=== PATIENT | female | born 1955 | race Caucasian/White ===

== ENCOUNTER 2018-08-05 00:49 | Emergency (ER) | payer MEDICARE, OTHER ==
[2018-08-05 01:33] LABS: Bilirubin Negative (Negative); Blood, Urine Large (Negative); Clarity CLEAR (Clear); Glucose, Urine (Dipstick) Negative (Negative); Leukocyte Negative (Negative); Nitrite Negative (Negative); Protein, Urine (Dipstick) Negative (Neg-Trace); Specific Gravity, Urine 1.011 (1.002-1.036); Urobilinogen 0.2 mg/dL (0.2-1.0)
[2018-08-05 01:33] LABS: #Basophils 0.1 thou/uL (0.0-0.2); #Eosinphils 0.1 thou/uL (0.0-0.7); #Lymphocytes 2.8 thou/uL (1.20-3.40); #Monocytes 0.7 thou/uL (0.11-0.59); #Neutrophils 3.3 thou/uL (1.40-6.50); %Basophils 1.1 % (0.0-1.0); %Eosinophils 1.5 % (0.0-10.0); %Lymphocytes 40.1 % (21.0-51.0); %Neutrophils 47.3 % (42.0-75.0); Hemoglobin 13.9 g/dL (12.0-16.0); Mean Corpuscular HGB CONC 33.4 g/dL (32.0-36.0); Mean Corpuscular Hemoglobin 31.8 pg (27.0-31.0); Mean Corpuscular Volume 95.2 fL (78.0-98.0); Mean Platelet Volume 7.8 fL (7.4-10.4); Platelet Count 251 thou/uL (130-400); RBC Distribution Width 11.8 % (11.5-14.5); Red Blood Cell (RBC) Count 4.38 mill/uL (4.20-5.40)
[2018-08-05 01:36] LABS: Bacteria/HPF None Seen HPF (None Seen); Hyaline Casts/LPF 0-3 HYALINE CAST LPF (0-3 Hyaline); Pathc Cast-AUWi Flag 0.14 (0-2.49); RBC/HPF GREATER THAN 50-TNTC HPF (0-3); WBC/HPF 0-3 HPF (0-3)
[2018-08-05 01:43] LABS: Renal Epithelial None Seen HPF (0-3)
[2018-08-05 01:51] LABS: ALT (SGPT) 22 U/L (8-55); AST (SGOT) 18 U/L (5-34); Albumin 4.4 g/dL (3.4-4.8); Alkaline Phosphatase 89 U/L (40-150); Anion Gap 13 mmol/L (10-20); BUN (Urea Nitrogen) 12 mg/dL (9.8-20.1); Bilirubin, Total 0.3 mg/dL (0.2-1.2); Calc. Creatinine Clearance 0 mL/min (70-130); Calcium 10.3 mg/dL (7.8-10.44); Carbon Dioxide 28 mmol/L (23-31); Chloride 107 mmol/L (98-107); Estimated GFR-MDRD Greater than 90; Globulin 3.1 g/dL (2.4-3.5); Glucose 97 mg/dL (80-115); Protein, Total 7.5 g/dL (6.0-8.3); Sodium 144 mmol/L (136-145)
[2018-08-05 01:55] LABS: CKMB 1.6 ng/mL (0-6.6); Troponin I Less than 0.010 ng/mL (< 0.028)
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
== END 2018-08-05 03:36 | disposition home or self-care (01) ==
LOC: ERS 00:49
DX: F91.9 Conduct disorder, unspecified (principal); F03.90 Unspecified dementia, unspecified severity, without behavioral disturbance, psychotic disturbance, mood disturbance, and anxiety
CPT/HCPCS: 36415; 51701; 70450; 80053; 81003; 81015; 82553; 84484; 85025; A4353

== ENCOUNTER 2019-12-19 23:13 | Inpatient (IN) | payer MEDICARE, MEDICAID ==
[2019-12-19 23:46] LABS: INR-International Normal Ratio 1.5; PTT 27.5 SEC (22.9-36.1); Prothrombin Time 18.3 SEC (12.0-14.7)
--- NOTE | 2019-12-19 23:52 | RAD ---
PORTABLE CHEST ONE VIEW: 12/19/19 at 11:16 p.m. HISTORY: Altered mental status. Low hemoglobin. FINDINGS/IMPRESSION: The heart size is normal. The aorta is tortuous. A Wilson jacqui is seen in the thoracolumbar spine. There is pulmonary vascular congestion. No lobar consolidation, pneumothoraces, or large effusions a re seen. POS: OFF
[2019-12-20 00:01] LABS: ALT (SGPT) 27 U/L (8-55); AST (SGOT) 65 U/L (5-34); Albumin 3.4 g/dL (3.4-4.8); Alkaline Phosphatase 219 U/L (40-110); Anion Gap 17 mmol/L (10-20); BUN (Urea Nitrogen) 38 mg/dL (9.8-20.1); Bilirubin, Total 3.7 mg/dL (0.2-1.2); Calc. Creatinine Clearance 0 mL/min (70-130); Calcium 9.9 mg/dL (7.8-10.44); Carbon Dioxide 24 mmol/L (23-31); Chloride 106 mmol/L (98-107); Estimated GFR-MDRD 65; Globulin 3.1 g/dL (2.4-3.5); Glucose 132 mg/dL (80-115); Potassium 4.2 mmol/L (3.5-5.1); Protein, Total 6.5 g/dL (6.0-8.3); Sodium 143 mmol/L (136-145)
[2019-12-20 00:17] LABS: Bacteria/HPF None Seen HPF (None Seen); Bilirubin Negative (Negative); Blood, Urine Negative (Negative); Calcium Oxalate Crystals Rare HPF (None Seen); Clarity Clear (Clear); Glucose, Urine (Dipstick) Normal (Negative); Leukocyte Negative Leu/uL (Negative); Nitrite Negative (Negative); Protein, Urine (Dipstick) 30 mg/dL (Neg-Trace); RBC/HPF 0-3 HPF (0-3); Squamous Epithelial 0-3 HPF (0-3); Urobilinogen 12 mg/dL (Less than 2); WBC/HPF 0-3 HPF (0-3)
[2019-12-20 00:22] LABS: Hemoglobin 3.2 g/dL (12.0-16.0); Platelet Count 14 thou/uL (130-400)
[2019-12-20] MEDS ORDERED: Pantoprazole 40 MG VIAL ONE (00:30)
[2019-12-20] MEDS ORDERED: Piperacillin/Tazobactam 4.5 GM VIAL ONE (00:30)
[2019-12-20 00:36] LABS: Anisocytosis MODERATE=16-30 cells (100X) (0-5/hpf); Band 23 % (5-11); Lymphocytes 42 % (21-51); MDiff Complete? YES; Macrocytosis SLIGHT = 6-15 cells (100X) (0-5/hpf); Mean Corpuscular HGB CONC 33.3 g/dL (32.0-36.0); Mean Corpuscular Hemoglobin 38.8 pg (27.0-31.0); Mean Platelet Volume 12.5 fL (7.4-10.4); Metamyelocyte 2 % (0-0); Monocytes 2 % (0-10); Myelocyte 1 % (0-0); Neutrophil 30 % (42-75); Nucleated RBC 11 % (0); Platelet Morphology Comment Appears Decreased; RBC Distribution Width 26.5 % (11.5-14.5); Red Blood Cell (RBC) Count 0.83 mill/uL (4.20-5.40); Reflex for Review?? YES; White Blood Cell (WBC) Count 21.4 thou/uL (4.8-10.8)
[2019-12-20] MEDS ORDERED: Sodium Chloride 0.9% 1,000 ML IV SCH (02:25)
[2019-12-20] MEDS ORDERED: Pantoprazole 80 MG, Admixture Fee 1 EACH in Sodium Chloride 0.9% 100 ML IVPB SCH (02:30)
[2019-12-20 03:10] LABS: Lactic Acid 3.2 mmol/L (0.5-2.2)
[2019-12-20] MEDS: Piperacillin/Tazobactam 3.375 GM in Sodium Chloride 0.9% 100 ML IVPB SCH ×3 (11:25→23:46)
[2019-12-20 12:01] LABS: ALT (SGPT) 26 U/L (8-55); AST (SGOT) 66 U/L (5-34); Albumin 3.3 g/dL (3.4-4.8); Alkaline Phosphatase 200 U/L (40-110); Anion Gap 16 mmol/L (10-20); BUN (Urea Nitrogen) 31 mg/dL (9.8-20.1); Bilirubin, Total 4.1 mg/dL (0.2-1.2); Calc. Creatinine Clearance 65 mL/min (70-130); Calcium 9.7 mg/dL (7.8-10.44); Carbon Dioxide 20 mmol/L (23-31); Chloride 108 mmol/L (98-107); Estimated GFR-MDRD 78; Globulin 3.1 g/dL (2.4-3.5); Glucose 99 mg/dL (80-115); Hemoglobin 7.7 g/dL (12.0-16.0); Mean Corpuscular HGB CONC 34.8 g/dL (32.0-36.0); Mean Corpuscular Hemoglobin 34.6 pg (27.0-31.0); Mean Corpuscular Volume 99.5 fL (78.0-98.0); Mean Platelet Volume 8.1 fL (7.4-10.4); Platelet Count 73 thou/uL (130-400); Protein, Total 6.4 g/dL (6.0-8.3); RBC Distribution Width 19.4 % (11.5-14.5); Red Blood Cell (RBC) Count 2.22 mill/uL (4.20-5.40); Sodium 140 mmol/L (136-145); White Blood Cell (WBC) Count 14.5 thou/uL (4.8-10.8)
[2019-12-20 12:10] LABS: Anisocytosis SLIGHT = 6-15 cells (100X) (0-5/hpf); Band 17 % (5-11); Eosinophils 1 % (0-10); Lymphocytes 29 % (21-51); MDiff Complete? YES; Metamyelocyte 3 % (0-0); Monocytes 3 % (0-10); Myelocyte 1 % (0-0); Neutrophil 46 % (42-75); Nucleated RBC 4 % (0); Platelet Morphology Comment Appears Decreased; Polychromasia SLIGHT = 2-3 cells (100X) (0-2/hpf)
--- NOTE | 2019-12-20 14:31 | ULT ---
LIMITED ABDOMEN ULTRASOUND: 12/20/19 HISTORY: Abdominal distention, evaluation for ascites. Imaging of the four quadrants failed to show any evidence of ascites. Liver appears to be of increase d echogenicity which would suggest some fatty change. IMPRESSION: No evidence of ascites. POS: TPC
[2019-12-20] MEDS: Bisacodyl 10 MG SUPP PR SCH (16:17)
--- NOTE | 2019-12-20 17:45 | RAD ---
KUB AND LEFT LATERAL DECUBITUS VIEWS OF THE ABDOMEN: 12/20/19 Bowel gas pattern is nonobstructed. There is a moderate amount of stool present in the colon suggesti ng constipation. No free air. A single Wilson jacqui is in place. There is scoliotic change of the s pine. The bones are diffusely demineralized. FINDINGS: Findings that would suggest constipation. POS: TPC
--- NOTE | 2019-12-20 19:47 | CON ---
DATE OF CONSULTATION: REASON FOR CONSULT: Anemia and reportedly heme-positive stool. CONSULTING PHYSICIAN: Sonny Manley MD HISTORY OF PRESENT ILLNESS: Ms. Pitt is a 64-year-old female. She was transferred here from an outside halfway. History comes from reviewing the chart for the most part. I have talked to the nurses as she has some bipolar disease and psychosis. The patient denies any abdominal pain. Today, she notes she has not seen blood. She states she is 3 years old when she had a dog her legs. She wants to eat some food. Apparently, the patient was transferred from halfway apparently with a hemoglobin of 3.2 and a platelet count of 14,000. The patient showed no signs of acute hemorrhage. PAST MEDICAL HISTORY: Cerebral palsy, left BKA, peripheral vascular disease, dementia, bipolar disorder/schizoaffective disorder. This is per her halfway record. SOCIAL HISTORY: The patient does not drink alcohol. Does not use drugs. She is in a halfway setting. Her past history is unknown. She does not apparently smoke from those records. MEDICATIONS: At halfway: 1. Risperdal. 2. Tylenol. 3. Magnesium. 4. Vitamin C. 5. Seroquel. 6. Colace. 7. Cranberry. 8. Ecotrin. 9. Remeron. Medications here: 1. Influenza vaccine. 2. Protonix. 3. Zosyn. REVIEW OF SYSTEMS: The patient denies any bleeding or change in her bowels. The nurses note she has been kind of reluctant to eat. She has been mildly protuberant abdomen and is having liquid stools just kind of seep out of her bottom from [id number]. PHYSICAL EXAMINATION: VITAL SIGNS: Temperature is 98, she has been afebrile since admission, respirations 20, blood pressure 152/78. GENERAL: She is alert. She knows where she is. She knows her name. Does not know a lot else. She seems to be in good spirits and is very pleasant. HEENT: Oropharynx, no lesions. NECK: Supple. No adenopathy. LUNGS: Clear. HEART: Regular rhythm without murmurs. ABDOMEN: Protuberant, is tympanitic. Bowel sounds are positive. There is no palpable hepatosplenomegaly. There is no evidence of inguinal hernias. LYMPH NODES: There is no adenopathy in the axillary or inguinal regions. BREASTS: Her right breast seems much smaller than her left. There are no masses in the left side. I do not see any scars, but the nipple is inverted on the right. There does not seem to be any mass effect here and the skin is normal. RECTAL: Reveals a large fecal impaction. EXTREMITIES: Reveal no clubbing, cyanosis, or edema. SKIN: Without rash or lesions. LABORATORY STUDIES: After transfusion of 2 units of blood and 1 unit of platelets, her hemoglobin was 7.7 today and her platelet count was 73,000. For comparison from 08/05/2018, her white count was 7, hemoglobin was 13.9, and platelet count was 251. Here, white count was 21,000 on admission, bands were 17% today, 23% yesterday. Nucleated red blood cells are present. Macrocytosis was noted. Pathology review of the smear showed marked macrocytic anemia and thrombocytopenia, leukocytosis. INR was 1.5 on admission. Sodium 140, potassium 4, bicarb 20, chloride 108, BUN and creatinine are 31 and 0.7, bilirubin 4, AST 66, ALT 26, alkaline phosphatase 200, folate 22. B12 of 1725. Iron studies pending. ASSESSMENT: Severe anemia and thrombocytopenia on admission with elevated bilirubin. One wonders about hemolysis, immune thrombocytopenic purpura, hemolytic uremic syndrome, all the possibilities. She had elevated white count and acute leukemia would be a possibility. There does not seem to be any acute gastrointestinal bleed in this setting, although an occult blood was positive tested in the emergency room yesterday. There is no gross evidence of gastrointestinal bleeding by exam or history at this time. RECOMMENDATIONS: 1. Agree with Hematology consult. 2. Would fractionate the bilirubin to see if possibly this is a component of hemolysis causing elevated bilirubin. We will also use a PPI for ulcer prophylaxis. We will follow along with you. Job ID: [id number]
[2019-12-20] MEDS: Fleet Enema 133 ML BOT PR SCH (20:47)
[2019-12-20] MEDS ORDERED: FLU VACC QS2019-20(6MOS UP)/PF 60 MCG/0.5 ML SYRINGE IM ONE (21:00)
[2019-12-21] MEDS: Bisacodyl 10 MG SUPP PR SCH ×4 (01:43→23:28)
[2019-12-21] MEDS ORDERED: Acetaminophen 325 MG TAB PO PRN (02:12)
[2019-12-21] MEDS ORDERED: Mag-Al Plus 1200 MG/1200 MG/120 MG/30 ML UDCUP PO PRN (02:13)
[2019-12-21] MEDS ORDERED: Milk Of Magnesia 30 ML UDCUP PO PRN (02:14)
[2019-12-21 05:00] LABS: ALT (SGPT) 25 U/L (8-55); AST (SGOT) 71 U/L (5-34); Alkaline Phosphatase 196 U/L (40-110); Anion Gap 14 mmol/L (10-20); BUN (Urea Nitrogen) 22 mg/dL (9.8-20.1); Bilirubin, Direct 2.8 mg/dL (0.1-0.3); Bilirubin, Total 4.1 mg/dL (0.2-1.2); Calc. Creatinine Clearance 78 mL/min (70-130); Calcium 9.4 mg/dL (7.8-10.44); Carbon Dioxide 21 mmol/L (23-31); Chloride 107 mmol/L (98-107); Estimated GFR-MDRD Greater than 90; Glucose 77 mg/dL (80-115); Potassium 3.3 mmol/L (3.5-5.1); Sodium 139 mmol/L (136-145)
[2019-12-21 05:03] LABS: Band 18 % (5-11); Hemoglobin 7.1 g/dL (12.0-16.0); Lymphocytes 36 % (21-51); MDiff Complete? YES; Mean Corpuscular HGB CONC 35.5 g/dL (32.0-36.0); Mean Corpuscular Hemoglobin 35.4 pg (27.0-31.0); Mean Corpuscular Volume 99.8 fL (78.0-98.0); Mean Platelet Volume 9.7 fL (7.4-10.4); Metamyelocyte 2 % (0-0); Microcytosis SLIGHT = 6-15 cells (100X) (0-5/hpf); Monocytes 12 % (0-10); Neutrophil 32 % (42-75); Nucleated RBC 6 % (0); Platelet Count 32 thou/uL (130-400); Platelet Morphology Comment Appears Decreased; Polychromasia SLIGHT = 2-3 cells (100X) (0-2/hpf); RBC Distribution Width 19.2 % (11.5-14.5); Red Blood Cell (RBC) Count 2.01 mill/uL (4.20-5.40)
[2019-12-21] MEDS: Piperacillin/Tazobactam 3.375 GM in Sodium Chloride 0.9% 100 ML IVPB SCH ×4 (05:52→23:28)
[2019-12-21] MEDS: Fleet Enema 133 ML BOT PR SCH ×3 (05:52→21:03)
--- NOTE | 2019-12-21 07:44 | HP ---
REASON FOR ADMISSION/CHIEF COMPLAINT: Anemia with low hemoglobin and jaundice. HISTORY OF PRESENT ILLNESS: Ms. Pitt is a 64-year-old female with past medical history of bipolar disorder, cerebral palsy as well as BKA, left, was also found to have low hemoglobin of 2.9 in skilled nursing. Also noticed to have some jaundice as well. The patient unable to give any history because of her bipolar disorder. So, the patient was sent to the hospital. She does not complain of any abdominal pain. No chest pain. No shortness of breath. No nausea or vomiting. No blood in stool. The patient was evaluated in the ER, found to have hemoglobin of 3.2 and platelet count of 14,000. She was then started on transfusion. Also elevated count of WBC around 21,000. In the ER, the patient felt maybe she has sepsis as well. She was given vancomycin and Zosyn and admitted for further evaluation and management. PAST MEDICAL HISTORY: 1. Cerebral palsy. 2. Peripheral vascular disease. 3. Bipolar disorder. 4. Dementia. 5. Schizoaffective disorder. 6. Muscle weakness. PAST SURGICAL HISTORY: BKA, left. CURRENT MEDICATIONS: The patient is on: 1. Docusate sodium 100 mg daily. 2. Aspirin 81 mg daily. 3. Remeron 15 mg daily. 4. Seroquel 300 mg b.i.d. 5. Vitamin C 500 mg daily. 6. Risperdal 4 mg at bedtime. 7. Maalox p.r.n. 8. Milk of magnesia p.r.n. 9. Tylenol p.r.n. 10. She also gets Risperdal Consta 50 mg injection once a month. ALLERGIES: NKDA. FAMILY HISTORY: Nothing contributory. SOCIAL HISTORY: The patient lives at [facility]. No history of smoking. No history of alcohol intake. REVIEW OF SYSTEMS: CARDIOVASCULAR: No chest pain. No shortness of breath. RESPIRATORY: No fever or cough. GASTROINTESTINAL: No abdominal pain. No blood in stool. CENTRAL NERVOUS SYSTEM: The patient is awake, not well oriented. PHYSICAL EXAMINATION: VITAL SIGNS: Temperature 98, pulse 94, respirations 20, blood pressure 130/70. HEENT: Head is normocephalic, atraumatic. Pupils equal and reactive. Nasopharynx is pale and dry. NECK: Supple. No JVD. LUNGS: Bilateral air entry present. No rales, no rhonchi. HEART: S1 and S2 regular. ABDOMEN: Soft. No distention. No tenderness. No organomegaly. Bowel sounds present. RECTAL: Deferred. CENTRAL NERVOUS SYSTEM: No new deficit. LABORATORY DATA: CBC shows WBC 21,000, hemoglobin 3.2, hematocrit 9.7, platelets 14,000. Prothrombin time 18, INR 1.5. Metabolic panel; sodium 143, potassium 4.2, chloride 106, CO2 25, urea nitrogen 38, creatinine 0.8, glucose 132. Lactic acid 2.7. Bilirubin 3.7, AST 65, ALT 27, alkaline phosphate 219. Vitamin B12 level 1700 and folate level 16. Urinalysis negative. Chest x-ray, mild pulmonary vascular congestion. EKG shows sinus tachycardia with heart rate of 107, no acute ST-T wave changes seen. ASSESSMENT: 1. Severe anemia. 2. Severe thrombocytopenia. 3. Leukocytosis. 4. Bipolar disorder. 5. Peripheral vascular disease. 6. Dementia. 7. Cerebral palsy. 8. Status post BKA, left. 9. Possible hemolysis. PLAN: 1. Vital signs q.4 hours. 2. Activity as tolerated. 3. Allergies, NKDA. 4. Hep-Lock. 5. Transfuse 2 units of packed red cells. 6. Continue skilled nursing medications. 7. Zosyn 3.375 g IV piggyback q.6 hours. 8. GI consult. 9. Repeat CBC and CMP. 10. Hematology consult. Job ID: [id number]
[2019-12-21] MEDS: Aspirin 81 mg Enteric Coated Tablet PO SCH (08:47)
[2019-12-21] MEDS: Docusate 100 MG CAP PO SCH (08:48)
[2019-12-21] MEDS: Ascorbic Acid 500 mg Chewable Tablet PO SCH ×2 (08:48→21:02)
[2019-12-21] MEDS: Mirtazapine 15 MG TAB PO SCH (08:48)
[2019-12-21] MEDS: Pantoprazole 40 MG VIAL IVP SCH (08:49)
[2019-12-21 10:12] LABS: Reticulocyte Count 3.7 % (0.5-1.5)
[2019-12-21 10:42] LABS: Iron 300 ug/dL (50-170); Iron Binding Capacity, Total 291 mcg/dL (265-497)
--- NOTE | 2019-12-21 14:51 | CT ---
EXAM: CT Limited Exam PROVIDED CLINICAL HISTORY: Patient with thrombocytopenia. Possible leukemia. Bone marrow aspiration biopsy was requested. COMPARISON: None FINDINGS: After informed consent was obtained from patient's family member, the patient was placed on the CT sc an table in the prone position with grid localizer in place. Limited noncontrasted CT scan was obtained to the level of the iliac bones. The patient was unable to remain in a stationary position a nd was uncooperative preventing an attempt at biopsy. As result, bone marrow biopsy and aspiration was unable to be performed at this time. Findings were discussed with Antonia Christianson on 12/21/2019 at me of attempted biopsy. Patient will be rescheduled with anesthesia. There is nonspecific heterogeneity of the limited osseous structures of the pelvis. Postsurgical benson ges thoracolumbar spine are noted with single jacqui transfixing thoracolumbar spine. Right convex scoliosis thoracic spine is present. Certified Breastfeeding Educator image demonstrates a right pleural effusion. IMPRESSION: Bone marrow biopsy and aspiration was not able to be obtained at this time due to patient being uncoo perative with constant motion. As result, this examination will need to be performed with anesthesia. Findings were discussed with Antonia Christianson.
--- NOTE | 2019-12-21 17:10 | CON ---
DATE OF CONSULTATION: REASON FOR CONSULTATION: Anemia and thrombocytopenia. HISTORY OF PRESENT ILLNESS: Ms. Pitt is a 64-year-old female with medical history of bipolar disease, cerebral palsy, and BKA, who was found to have a hemoglobin of 2.9 in the [facility] morning. They noticed that she was jaundice. She was sent to the hospital for further evaluation. In the emergency room, CBC showed a white count of 21.4, hemoglobin of 3.2, hematocrit of 9.6, and platelet count of 14,000. She had 30% neutrophils, 23% bands, 42% lymphocytes, 2% metamyelocytes, 1% myelocytes, and 11% nucleated RBCs. She was transfused 2 units of packed blood and 1 unit of platelets with good response. The patient is unable to give a history due to her bipolar disease and she is not oriented to place or time. She denies any chest pain, shortness of breath, or abdominal discomfort. No bleeding. Her sister was present at bedside and history was obtained from her. GI was consulted and felt that hemorrhage was unlikely. Her stool for occult blood, however, was positive. Her LFTs were elevated at admission with bilirubin of 3.7. PAST MEDICAL HISTORY: 1. Bipolar disease. 2. Cerebral palsy. 3. Dementia. 4. Schizoaffective disorder. 5. Peripheral vascular disease. PAST SURGICAL HISTORY: BKA. ALLERGIES: NO KNOWN DRUG ALLERGIES. MEDICATIONS: 1. Risperdal. 2. Tylenol. 3. Magnesium. 4. Vitamin C. 5. Seroquel. 6. Colace. 7. Cranberry. 8. Ecotrin. 9. Remeron. FAMILY HISTORY: Noncontributory. SOCIAL HISTORY: Lives in [facility]. No alcohol, tobacco, or illicit drug use. REVIEW OF SYSTEMS: A 10-point review of systems is negative. PHYSICAL EXAMINATION: VITAL SIGNS: Temperature 98.0, pulse is 102, respiratory rate 18, BP is 135/69, and she is 95% on 1 L. GENERAL: This is a disheveled female, in no acute distress. HEENT: Normocephalic and atraumatic. Pupils equal and reactive to light. NECK: Supple. CV: Regular rate and rhythm. LUNGS: Clear. ABDOMEN: Distended, but nontender. Bowel sounds are positive. There is no organomegaly palpable. EXTREMITIES: No clubbing or cyanosis. She has a left BKA. SKIN: No rash. She is jaundiced. HEMATOLOGIC: No petechiae or purpura. NEUROLOGIC: The patient is oriented to name only. PERTINENT LABORATORY DATA AND X-RAYS: Current WBCs 16, hemoglobin 7.1, hematocrit 20.1, platelet count is 32,000, 32% neutrophils, 18% bands, 36% lymphocytes, 2% metamyelocytes, 6% nucleated RBCs, and reticulocyte count is 3.7. PT is 18.3, INR is 1.5, and PTT is 27.5. Sodium is 140, potassium 4, chloride 108, CO2 is 20, BUN is 31, creatinine 0.75, and glucose is 99. Lactic acid is 3.2. Calcium 9.7, total bilirubin is 4.1, AST is 33, ALT is 26, alkaline phosphatase is 200, serum total protein is 6.4, albumin 3.3, and globulin 3.1. Folate and B12 were normal. Iron studies are normal. LDH is elevated at 989. Urine shows no bacteria. Abdominal ultrasound and chest x-ray are normal. ASSESSMENT: 1. Severe anemia. 2. Severe thrombocytopenia. 3. Hyperbilirubinemia. 4. Leukocytosis. 5. Bipolar disease. 6. Schizoaffective disorder. DISCUSSION: The patient has been discussed and reviewed with Dr. Estes. Although her LDH is elevated, her reticulocyte count remains low and her kidney function is normal. I do not feel this is a hemolytic anemia nor TTP. Given her immature cells in her peripheral blood, we will plan a bone marrow biopsy to rule out a hematological malignancy. This was discussed with her sister who would like to further pursue a diagnosis. Hopefully, the bone marrow biopsy will be done today. We will continue supportive care and Dr. Estes will see the patient this weekend. Thank you for the consult. Job ID: [id number]
--- NOTE | 2019-12-21 18:46 | PRG ---
DATE OF SERVICE: 12/21/2019 SUBJECTIVE: Ms. Pitt states she has no stomach pain. The nurses note she still has hard stools. X-rays today showed constipation and impaction. OBJECTIVE: VITAL SIGNS: Pulse 97, temperature 97.8. She has been afebrile, blood pressure 127/74. ABDOMEN: Slightly protuberant. There is no rebound. There is no guarding. Bowel sounds are quiescent. There are no umbilical hernias or inguinal hernias. Nontender. There is no palpable hepatosplenomegaly. EXTREMITIES: Without clubbing, cyanosis, or edema. LABORATORY DATA: White count 16, hemoglobin 7, MCV 99, platelet count 32,000. Bone marrow biopsy results are pending. Iron is 300, saturation 100% with TIBC of 291, this is all drawn after transfusion. LDH is high at 989, alkaline phosphatase is 196, AST 71, direct bilirubin is 2.8, total 4.1, vitamin B 1725, folate 16, albumin 3, protein 6. Haptoglobin is pending. ASSESSMENT: 1. Fecal impaction, still on treatment plan with enemas, manual disimpaction, suppository. We will start low-dose MiraLAX. 2. Anemia. 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 It is associated with severe thrombocytopenia and leukocytosis. Abnormal peripheral smear. Biopsies are pending. 3. Elevated bilirubin is about longterm fractionated. She has mildly elevated AST, ALT, and alkaline phosphatase. She has no upper quadrant tenderness. She had an ultrasound, though it is really just looking for ascites. There is no comment on gallbladder, liver, or anything else. RECOMMENDATIONS: 1. Continue present treatment. 2. We will monitor LFTs. We will consider further imaging of the abdomen, then we will order liver test. If she has any signs of decompensation, I get her a CAT scan right away. At this time, we will follow along with you. Job ID: [id number]
[2019-12-21] MEDS: risperiDONE 1 MG TAB PO SCH (21:02)
[2019-12-22] MEDS: Fleet Enema 133 ML BOT PR SCH ×3 (03:02→21:37)
[2019-12-22] MEDS: Piperacillin/Tazobactam 3.375 GM in Sodium Chloride 0.9% 100 ML IVPB SCH ×4 (04:28→23:33)
[2019-12-22] MEDS: CRANBERRY EXTRACT 425 MG PO SCH (07:18)
[2019-12-22 07:19] LABS: Mean Corpuscular HGB CONC 35.3 g/dL (32.0-36.0); Mean Corpuscular Hemoglobin 35.4 pg (27.0-31.0); Mean Platelet Volume 13.1 fL (7.4-10.4); Platelet Count 12 thou/uL (130-400); RBC Distribution Width 19.3 % (11.5-14.5); Red Blood Cell (RBC) Count 1.98 mill/uL (4.20-5.40); White Blood Cell (WBC) Count 17.4 thou/uL (4.8-10.8)
[2019-12-22 07:21] LABS: ALT (SGPT) 26 U/L (8-55); AST (SGOT) 79 U/L (5-34); Alkaline Phosphatase 210 U/L (40-110); Anion Gap 10 mmol/L (10-20); BUN (Urea Nitrogen) 14 mg/dL (9.8-20.1); Bilirubin, Total 4.3 mg/dL (0.2-1.2); Calc. Creatinine Clearance 84 mL/min (70-130); Calcium 9.7 mg/dL (7.8-10.44); Carbon Dioxide 26 mmol/L (23-31); Chloride 108 mmol/L (98-107); Estimated GFR-MDRD Greater than 90; Globulin 2.9 g/dL (2.4-3.5); Glucose 83 mg/dL (80-115); Potassium 3.4 mmol/L (3.5-5.1); Protein, Total 5.9 g/dL (6.0-8.3); Sodium 141 mmol/L (136-145)
[2019-12-22 07:47] LABS: Band 6 % (5-11); Eosinophils 1 % (0-10); Hypochromia SLIGHT = 6-15 cells (100X) (0-5/hpf); Lymphocytes 38 % (21-51); MDiff Complete? YES; Monocytes 17 % (0-10); Neutrophil 37 % (42-75); Nucleated RBC 7 % (0); Platelet Morphology Comment Appears Decreased; Polychromasia SLIGHT = 2-3 cells (100X) (0-2/hpf)
[2019-12-22] MEDS: Aspirin 81 mg Enteric Coated Tablet PO SCH (08:39)
[2019-12-22] MEDS: Docusate 100 MG CAP PO SCH (08:39)
[2019-12-22] MEDS: Ascorbic Acid 500 mg Chewable Tablet PO SCH ×2 (08:39→21:37)
[2019-12-22] MEDS: Bisacodyl 10 MG SUPP PR SCH ×3 (08:39→23:37)
[2019-12-22] MEDS: Mirtazapine 15 MG TAB PO SCH (08:40)
[2019-12-22] MEDS: Pantoprazole 40 MG VIAL IVP SCH (08:40)
[2019-12-22] MEDS ORDERED: Iopamidol-370 76% 500 ML 1 ML ONE (11:27)
--- NOTE | 2019-12-22 20:16 | CT ---
CT abdomen and pelvis with IV and oral contrast HISTORY: Abdominal pain and distention. Possible lymphoma. FINDINGS: Small amount of bilateral pleural fluid and compressive bibasilar atelectasis. Postoperativ e and degenerative changes throughout the thoracolumbar spine with long orthopedic fixation jacqui in place. Prominent rotatory scoliotic curvature of the thoracolumbar spine. Solid organs of the abdomen are intact. There is calcification in the arterial structures. No evidenc e of bowel obstruction. Olivares catheter decompresses the urinary bladder. Prominent circumferential wall thickening of the rectum, up to 1.8 cm, with subtle stranding in the a djacent fat. No significant free fluid or free air. No enlarged lymph nodes are apparent within the mesentery or retroperitoneum. IMPRESSION: No CT evidence of lymphoma within the abdomen/pelvis. Cause for abdominal distention is n ot evident. Bilateral pleural fluid and compressive atelectasis at the lung bases. Prominent circumferential wall thickening and inflammation of the rectum with the appearance of proct itis. Cause is not evident. Atherosclerosis.
[2019-12-22] MEDS: risperiDONE 1 MG TAB PO SCH (21:37)
[2019-12-23] MEDS: Fleet Enema 133 ML BOT PR SCH (04:01)
[2019-12-23] MEDS: Piperacillin/Tazobactam 3.375 GM in Sodium Chloride 0.9% 100 ML IVPB SCH ×2 (05:42→12:17)
[2019-12-23 05:49] LABS: Hemoglobin 6.8 g/dL (12.0-16.0); Mean Corpuscular Hemoglobin 34.9 pg (27.0-31.0); Mean Platelet Volume 12.2 fL (7.4-10.4); Platelet Count 7 thou/uL (130-400); RBC Distribution Width 19.4 % (11.5-14.5); Red Blood Cell (RBC) Count 1.95 mill/uL (4.20-5.40); White Blood Cell (WBC) Count 16.3 thou/uL (4.8-10.8)
[2019-12-23 06:06] LABS: ALT (SGPT) 24 U/L (8-55); AST (SGOT) 80 U/L (5-34); Albumin 2.6 g/dL (3.4-4.8); Alkaline Phosphatase 192 U/L (40-110); Anion Gap 15 mmol/L (10-20); BUN (Urea Nitrogen) 12 mg/dL (9.8-20.1); Calc. Creatinine Clearance 92 mL/min (70-130); Calcium 9.2 mg/dL (7.8-10.44); Carbon Dioxide 22 mmol/L (23-31); Chloride 106 mmol/L (98-107); Estimated GFR-MDRD Greater than 90; Globulin 2.8 g/dL (2.4-3.5); Glucose 78 mg/dL (80-115); Potassium 3.8 mmol/L (3.5-5.1); Protein, Total 5.4 g/dL (6.0-8.3); Sodium 139 mmol/L (136-145)
[2019-12-23 06:20] LABS: Band 8 % (5-11); Eosinophils 1 % (0-10); Hypochromia SLIGHT = 6-15 cells (100X) (0-5/hpf); Lymphocytes 44 % (21-51); MDiff Complete? YES; Metamyelocyte 3 % (0-0); Monocytes 9 % (0-10); Myelocyte 2 % (0-0); Neutrophil 32 % (42-75); Nucleated RBC 10 % (0); Platelet Morphology Comment Appears Decreased; Polychromasia SLIGHT = 2-3 cells (100X) (0-2/hpf)
[2019-12-23 09:15] LABS: INR-International Normal Ratio 1.3; PTT 30.1 SEC (22.9-36.1)
[2019-12-23 09:17] LABS: D-Dimer Test 2.91 *mcg/mL (0.27-0.43)
[2019-12-23] MEDS: Docusate 100 MG CAP PO SCH (09:18)
[2019-12-23] MEDS: Aspirin 81 mg Enteric Coated Tablet PO SCH (09:18)
[2019-12-23] MEDS: Ascorbic Acid 500 mg Chewable Tablet PO SCH ×2 (09:18→21:33)
[2019-12-23] MEDS: Polyethylene Glycol 3350 17 GM Packet PO SCH (09:19)
[2019-12-23] MEDS: Mirtazapine 15 MG TAB PO SCH (09:19)
[2019-12-23] MEDS: Bisacodyl 10 MG SUPP PR SCH (09:20)
[2019-12-23] MEDS: Pantoprazole 40 MG VIAL IVP SCH (09:20)
--- NOTE | 2019-12-23 09:52 | PRG ---
DATE OF SERVICE: 12/22/2019 SUBJECTIVE: Ms. Pitt denies any abdominal pain. She has had no fever or chills. She is eating. The nurses note she is still having very hard stools . She has been seen by Oncology. Medications still include broad-spectrum antibiotics, PPI therapy, Seroquel, some Fleet enemas and suppositories. OBJECTIVE: VITAL SIGNS: Temperature 97.9, pulse 96, blood pressure 160/90. LUNGS: Clear. HEART: Regular rate and rhythm. ABDOMEN: Protuberant. nontender. There are no masses palpable. There is no adenopathy palpable. LABORATORY DATA: White count 17,000, hemoglobin 7, platelet count 12,000. Bilirubin 4.3, AST 79, ALT 26, alkaline phosphatase 210, BUN and creatinine 14 and 0.6. ASSESSMENT: 1. Abnormal LFTs of unclear etiology, possibly infiltrative lesions in the liver there may be some component of hemolysis. 2. low hemoglobin and platelets with elevated white blood cell count, the patient is being worked up for possible lymphoma, leukemia by Hematology. 3. Fecal impaction. PLAN: 1. Continue bowel regimen and enemas for fecal impaction. 2. We will check a CT scan of abdomen and pelvis. I do not think there is anything infectious here we will go and check that. If it is negative, I suspect her antibiotics can be discontinued. We would defer that to Hematology and Primary Service. We will follow along with you. Job ID: [id number]
--- NOTE | 2019-12-23 13:13 | PRG ---
DATE OF SERVICE: 12/23/2019 SUBJECTIVE: Ms. Pitt is somnolent in bed. She denies pain. The nurse notes her bowels move pretty well and she has pretty cleaned out with her bowel movements. She is without complaints. She did have a CT scan last night showing most of the fecal impaction removed, but some inflammation in the rectum. OBJECTIVE: VITAL SIGNS: Temperature is 98, pulse 94, blood pressure 149/79. ABDOMEN: Soft and nontender. She is very sallow in appearance. LABORATORY AND DIAGNOSTIC DATA: White count 17,000, hemoglobin 7, platelet count 12,000, yesterday; today it is 16,300 white count, hemoglobin 6.8, and platelet count of 7000. Sodium 139, potassium 3.8, BUN and creatinine are 12 and 0.55, bilirubin 4, AST 80, ALT 24. CT scan of abdomen and pelvis, reviewed the films by myself, showed some thickening of the rectal mucosa. There is scant stool in the colon now. ASSESSMENT: 1. Fecal impaction, resolved . We will stop the enemas and suppositories. 2. Thickening, circumferential of the rectum on CT scan. This appears to be stercoral ulceration. There is no mass palpated on a rectal exam on admission. 3. Anemia and thrombocytopenia. Workup for primary bone marrow abnormality is pending. 4. Mildly elevated bilirubin. About 50% of this was indirect, it is probably a small component of hemolysis. 5. Leukocytosis. This is probably a hematologic abnormality and not a sign of infection. Her CT scan and physical exam showed no signs of infection, and blood cultures and urine cultures have been negative. 6. The patient was occult blood positive on admission and this is probably related to a large fecal impaction versus stercoral ulcer we have no plans for endoscopy. We will recommend MiraLAX daily to help keep her bowels. We will follow from a distance. If I can be of any further assistance in her care, please do not hesitate to contact me. Job ID: [id number]
[2019-12-23] MEDS: risperiDONE 1 MG TAB PO SCH (22:54)
[2019-12-24 05:58] LABS: Fibrinogen 377 mg/dL (253-463)
[2019-12-24 06:09] LABS: FSP-Qualitative ABNORMAL (Normal); FSP-Semiquantitative >=5 & <20 mcg/mL (Less than 5)
[2019-12-24 06:21] LABS: Mean Corpuscular HGB CONC 34.8 g/dL (32.0-36.0); Mean Corpuscular Hemoglobin 32.3 pg (27.0-31.0); Mean Platelet Volume 13.2 fL (7.4-10.4); Platelet Count 8 thou/uL (130-400); RBC Distribution Width 20.3 % (11.5-14.5); Red Blood Cell (RBC) Count 3.09 mill/uL (4.20-5.40); White Blood Cell (WBC) Count 18.6 thou/uL (4.8-10.8)
[2019-12-24 06:22] LABS: ALT (SGPT) 27 U/L (8-55); AST (SGOT) 84 U/L (5-34); Albumin 2.9 g/dL (3.4-4.8); Alkaline Phosphatase 213 U/L (40-110); Anion Gap 13 mmol/L (10-20); BUN (Urea Nitrogen) 10 mg/dL (9.8-20.1); Bilirubin, Total 5.1 mg/dL (0.2-1.2); Calc. Creatinine Clearance 86 mL/min (70-130); Calcium 9.9 mg/dL (7.8-10.44); Carbon Dioxide 25 mmol/L (23-31); Chloride 106 mmol/L (98-107); Estimated GFR-MDRD Greater than 90; Globulin 3.2 g/dL (2.4-3.5); Glucose 77 mg/dL (80-115); Potassium 3.9 mmol/L (3.5-5.1); Protein, Total 6.1 g/dL (6.0-8.3); Sodium 140 mmol/L (136-145)
[2019-12-24 06:40] LABS: Band 2 % (5-11); Eosinophils 4 % (0-10); Lymphocytes 39 % (21-51); MDiff Complete? YES; Metamyelocyte 2 % (0-0); Monocytes 8 % (0-10); Neutrophil 44 % (42-75); Nucleated RBC 9 % (0); Platelet Morphology Comment Appears Decreased
[2019-12-24] MEDS: Polyethylene Glycol 3350 17 GM Packet PO SCH (08:42)
[2019-12-24] MEDS: Aspirin 81 mg Enteric Coated Tablet PO SCH (08:42)
[2019-12-24] MEDS: Docusate 100 MG CAP PO SCH (08:42)
[2019-12-24] MEDS: Mirtazapine 15 MG TAB PO SCH (08:42)
[2019-12-24] MEDS: Ascorbic Acid 500 mg Chewable Tablet PO SCH ×2 (08:42→20:29)
[2019-12-24] MEDS: risperiDONE 1 MG TAB PO SCH ×2 (08:43→20:30)
[2019-12-24] MEDS: Pantoprazole 40 MG VIAL IVP SCH (08:49)
--- NOTE | 2019-12-24 11:25 | PRG ---
DATE OF SERVICE: 12/24/2019 SUBJECTIVE: Ms. Pitt is without complaints today, except for she wants some water. Ms. Pitt has no abdominal pain today. Her bowels are moving. OBJECTIVE: VITAL SIGNS: Temperature 98, pulse 111, blood pressure 125/92. ABDOMEN: Soft and nontender. LABORATORY DATA: White count 18.6, hemoglobin 10, platelets are 8,000. ASSESSMENT: 1. Fecal impaction, resolved. Proctitis on CAT scan, likely due to the impaction. No symptoms of bleeding or pain. 2. 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 Workup is pending. We will go ahead and sign off this time. If I can be of any further assistance in the patient's care, please do not hesitate to contact me. Job ID: [id number]
--- NOTE | 2019-12-24 14:10 | PDOC.MOPN ---
Interval History: No distress. No family at bedside. - Vital Signs Vital Signs: Vital Signs (12 hours) Temp Pulse Resp BP Pulse Ox 12/24/19 11:51 98.2 F 100 21 H 172/93 H 94 L 12/24/19 08:49 94 L 12/24/19 08:00 97.9 F 101 H 20 175/92 H 94 L Weight Admit Weight 119 lb 3.2 oz Weight 124 lb 8.979 oz Most Recent Monitor Data Heart Rate from ECG 94 - Physical Exam General: Alert, No acute distress Lungs: Clear to auscultation Cardiovascular: Regular rate Abdomen: Soft Extremities: No clubbing, No cyanosis, No edema, Normal pulses, No tenderness/ swelling Skin: No rashes, No breakdown, No significant lesion Neurological: Normal speech Psych/Mental Status: Other (oriented x 1) - Labs Result Diagrams: 12/24/19 05:09 12/24/19 05:09 Lab results: Laboratory Results - last 24 hr 12/24/19 05:09: WBC 18.6 H, RBC 3.09 L, Hgb 10.0 L, Hct 28.8 L, MCV 93.0, MCH 32.3 H, MCHC 34.8, RDW 20.3 H, Plt Count 8 L*, MPV 13.2 H, Neutrophils % (Manual ) 44, Band Neuts % (Manual) 2 L, Lymphocytes % (Manual) 39, Monocytes % (Manual ) 8, Eosinophils % (Manual) 4, Basophils % (Manual) 1, Metamyelocytes % (Man) 2 H, Neutrophils # Not Reportable, Lymphocytes # Not Reportable, Nucleated RBCs # (Man) 9 H, Plt Morphology Comment Appears Decreased L 12/24/19 05:09: Sodium 140, Potassium 3.9, Chloride 106, Carbon Dioxide 25, Anion Gap 13, BUN 10, Creatinine 0.59 L, Estimated GFR (MDRD) Greater than 90, Glucose 77 L, Calcium 9.9, Total Bilirubin 5.1 H, AST 84 H, ALT 27, Alkaline Phosphatase 213 H, Serum Total Protein 6.1, Albumin 2.9 L, Globulin 3.2, Albumin /Globulin Ratio 0.9 L 12/24/19 05:09: Fibrinogen 377, Fibrin Degrad Products ABNORMAL H, Fibrin Degrad Prod, Qt >=5 & <20 H 12/23/19 11:34: Blood Type O POSITIVE, Antibody Screen NEGATIVE, Crossmatch See Detail Status: lab reviewed by me A/P - Problem (1) Thrombocytopenia Current Visit: Yes Code(s): D69.6 - THROMBOCYTOPENIA, UNSPECIFIED Status: Acute (2) Anemia Current Visit: Yes Code(s): D64.9 - ANEMIA, UNSPECIFIED Status: Acute
[2019-12-24] MEDS ORDERED: cloNIDine 0.1 MG TAB PO PRN (19:09)
[2019-12-25 06:21] LABS: Band 8 % (5-11); Eosinophils 1 % (0-10); Hemoglobin 9.8 g/dL (12.0-16.0); Hypochromia SLIGHT = 6-15 cells (100X) (0-5/hpf); Lymphocytes 22 % (21-51); MDiff Complete? YES; Mean Corpuscular HGB CONC 34.5 g/dL (32.0-36.0); Mean Corpuscular Hemoglobin 32.6 pg (27.0-31.0); Mean Corpuscular Volume 94.6 fL (78.0-98.0); Metamyelocyte 1 % (0-0); Monocytes 6 % (0-10); Neutrophil 62 % (42-75); Nucleated RBC 13 % (0); Platelet Count 33 thou/uL (130-400); Platelet Morphology Comment Appears Decreased; RBC Distribution Width 20.5 % (11.5-14.5); Red Blood Cell (RBC) Count 3.01 mill/uL (4.20-5.40); White Blood Cell (WBC) Count 17.2 thou/uL (4.8-10.8)
[2019-12-25 06:27] LABS: ALT (SGPT) 23 U/L (8-55); AST (SGOT) 79 U/L (5-34); Albumin 3.1 g/dL (3.4-4.8); Alkaline Phosphatase 231 U/L (40-110); Anion Gap 13 mmol/L (10-20); BUN (Urea Nitrogen) 10 mg/dL (9.8-20.1); Bilirubin, Total 4.2 mg/dL (0.2-1.2); Calc. Creatinine Clearance 87 mL/min (70-130); Calcium 10.3 mg/dL (7.8-10.44); Carbon Dioxide 24 mmol/L (23-31); Chloride 106 mmol/L (98-107); Estimated GFR-MDRD Greater than 90; Globulin 3.2 g/dL (2.4-3.5); Glucose 84 mg/dL (80-115); Potassium 4.2 mmol/L (3.5-5.1); Protein, Total 6.3 g/dL (6.0-8.3); Sodium 139 mmol/L (136-145)
[2019-12-25] MEDS: Docusate 100 MG CAP PO SCH (07:42)
[2019-12-25] MEDS: Polyethylene Glycol 3350 17 GM Packet PO SCH (07:42)
[2019-12-25] MEDS: Mirtazapine 15 MG TAB PO SCH (07:42)
[2019-12-25] MEDS: Ascorbic Acid 500 mg Chewable Tablet PO SCH ×2 (07:42→20:42)
[2019-12-25] MEDS: Aspirin 81 mg Enteric Coated Tablet PO SCH (07:42)
[2019-12-25] MEDS: Pantoprazole 40 MG VIAL IVP SCH (08:00)
[2019-12-25] MEDS ORDERED: PROPOFOL 200 MG/20 ML VIAL ONE (09:49)
[2019-12-25] MEDS ORDERED: Ondansetron PF 4 MG/2 ML Vial ONE (09:49)
[2019-12-25] MEDS ORDERED: Dexamethasone 20 MG/5 ML VIAL ONE (09:49)
[2019-12-25] MEDS ORDERED: EPHEDRINE 25 MG/5 ML SYRINGE ONE (09:49)
[2019-12-25] MEDS ORDERED: Lidocaine 1% PF 5 ML VIAL ONE (09:49)
[2019-12-25] MEDS ORDERED: Rocuronium Bromide 10 MG/ML (10ML VIAL) ONE (09:49)
[2019-12-25] MEDS ORDERED: Glycopyrrolate 0.2 MG/ML 5 ML SYRINGE ONE (09:49)
[2019-12-25] MEDS ORDERED: Labetalol HCl 100 MG/20 ML VIAL IVPB PRN (11:54)
[2019-12-25] MEDS ORDERED: Fentanyl 100 MCG/2 ML VIAL ONE (13:22)
[2019-12-25] MEDS ORDERED: Ondansetron HCl/PF 4 MG/2 ML Vial IVP PRN (14:34)
[2019-12-25] MEDS ORDERED: Promethazine HCl 25 MG/ML VIAL IM PRN (14:34)
[2019-12-25] MEDS ORDERED: Promethazine HCl 25 MG/ML VIAL SLOW IVP PRN (14:34)
--- NOTE | 2019-12-25 14:34 | CT ---
CT-guided bone marrow aspiration/biopsy HISTORY: Pancytopenia. FINDINGS: Anesthesia was administered by the anesthesia department. Sterile technique, buffered local anesthesia, CT guidance, and a left posterior approach were used to carefully advance an 11-gauge bone biopsy needle to the posterior aspect of the left iliac bone. Needle was carefully engage into the bone marrow. Attempt at blood aspiration yielded minimal blood t hat was submitted to pathology for processing. An 11-gauge core specimen was obtained with dense tissue. Needle was removed. Patient tolerated the p rocedure well and was left in the care of anesthesia department. IMPRESSION: Technically successful CT-guided bone marrow biopsy. Extensive fibrosis with limited bloo d aspirate. Pathology is pending.
[2019-12-25] MEDS ORDERED: Labetalol HCl 100 MG/20 ML VIAL SLOW IVP PRN (15:15)
--- NOTE | 2019-12-25 15:38 | PDOC.MOPN ---
Interval History: thirsty - Vital Signs Vital Signs: Vital Signs (12 hours) Temp Pulse Resp BP Pulse Ox 12/25/19 15:25 81 162/90 H 93 L 12/25/19 15:15 97.5 F L 93 20 159/83 H 93 L 12/25/19 11:16 98.1 F 94 18 175/92 H 95 12/25/19 08:01 92 L 12/25/19 07:31 98.2 F 101 H 18 162/83 H 92 L Weight Admit Weight 119 lb 3.2 oz Weight 124 lb 8.979 oz Most Recent Monitor Data Heart Rate from ECG 94 - Physical Exam General: Alert, Other (oriented to person) HEENT: Atraumatic, PERRLA, EOMI, Mucous membr. moist/pink Lungs: Clear to auscultation, Normal air movement Cardiovascular: Regular rate, Normal S1, Normal S2, No murmurs, Gallops, Rubs Abdomen: Normal bowel sounds, Soft, No tenderness, No hepatospenomegaly, No masses Extremities: No clubbing, No cyanosis, No edema, Normal pulses, No tenderness/ swelling Skin: No rashes, No breakdown, No significant lesion Neurological: Other - Labs Result Diagrams: 12/25/19 05:13 12/25/19 05:13 Lab results: Laboratory Results - last 24 hr 12/25/19 11:19: POC Glucose 83 12/25/19 05:13: Sodium 139, Potassium 4.2, Chloride 106, Carbon Dioxide 24, Anion Gap 13, BUN 10, Creatinine 0.58 L, Estimated GFR (MDRD) Greater than 90, Glucose 84, Calcium 10.3, Total Bilirubin 4.2 H, AST 79 H, ALT 23, Alkaline Phosphatase 231 H, Serum Total Protein 6.3, Albumin 3.1 L, Globulin 3.2, Albumin /Globulin Ratio 1.0 L 12/25/19 05:13: WBC 17.2 H, RBC 3.01 L, Hgb 9.8 L, Hct 28.5 L, MCV 94.6, MCH 32.6 H, MCHC 34.5, RDW 20.5 H, Plt Count 33 L, MPV 10.0, Neutrophils % (Manual) 62, Band Neuts % (Manual) 8, Lymphocytes % (Manual) 22, Monocytes % (Manual) 6, Eosinophils % (Manual) 1, Metamyelocytes % (Man) 1 H, Nucleated RBCs # (Man) 13 H, Hypochromia SLIGHT = 6-15 cells, Plt Morphology Comment Appears Decreased L 12/24/19 07:54: Flow Cytometry Interp 12/23/19 11:34: Blood Type O POSITIVE, Antibody Screen NEGATIVE, Crossmatch See Detail 12/21/19 04:03: Haptoglobin Less than 10 L Status: lab reviewed by me A/P - Problem (1) Thrombocytopenia Current Visit: Yes Code(s): D69.6 - THROMBOCYTOPENIA, UNSPECIFIED Status: Acute (2) Anemia Current Visit: Yes Code(s): D64.9 - ANEMIA, UNSPECIFIED Status: Acute - Plan Plan: BMB done today with anesthesia, await results flow cytometry non diagnostic bilirubin stable. Dr. Estes to follow.
[2019-12-25] MEDS: risperiDONE 1 MG TAB PO SCH (20:43)
[2019-12-26 05:52] LABS: Hemoglobin 9.5 g/dL (12.0-16.0); Mean Corpuscular HGB CONC 34.8 g/dL (32.0-36.0); Mean Corpuscular Hemoglobin 33.4 pg (27.0-31.0); Mean Corpuscular Volume 95.9 fL (78.0-98.0); Mean Platelet Volume 13.5 fL (7.4-10.4); Platelet Count 17 thou/uL (130-400); RBC Distribution Width 20.2 % (11.5-14.5); Red Blood Cell (RBC) Count 2.86 mill/uL (4.20-5.40); White Blood Cell (WBC) Count 19.1 thou/uL (4.8-10.8)
[2019-12-26 06:30] LABS: Band 9 % (5-11); Lymphocytes 36 % (21-51); MDiff Complete? YES; Metamyelocyte 6 % (0-0); Monocytes 5 % (0-10); Myelocyte 1 % (0-0); Neutrophil 42 % (42-75); Nucleated RBC 9 % (0); Platelet Morphology Comment Appears Decreased
[2019-12-26] MEDS: Ascorbic Acid 500 mg Chewable Tablet PO SCH ×2 (09:23→20:13)
[2019-12-26] MEDS: Mirtazapine 15 MG TAB PO SCH (09:23)
[2019-12-26] MEDS: Aspirin 81 mg Enteric Coated Tablet PO SCH (09:23)
[2019-12-26] MEDS: Pantoprazole 40 MG VIAL IVP SCH (09:24)
[2019-12-26] MEDS: Polyethylene Glycol 3350 17 GM Packet PO SCH (09:24)
[2019-12-26] MEDS: Docusate 100 MG CAP PO SCH (09:24)
[2019-12-26 14:18] VITALS: BMI 22.8
[2019-12-26] MEDS ORDERED: Lisinopril 10 MG TAB PO SCH (18:15)
[2019-12-26] MEDS: risperiDONE 1 MG TAB PO SCH (20:12)
[2019-12-27 05:56] LABS: Band 7 % (5-11); Eosinophils 1 % (0-10); Hemoglobin 8.9 g/dL (12.0-16.0); Lymphocytes 46 % (21-51); MDiff Complete? YES; Mean Corpuscular HGB CONC 33.7 g/dL (32.0-36.0); Mean Corpuscular Hemoglobin 32.8 pg (27.0-31.0); Mean Corpuscular Volume 97.4 fL (78.0-98.0); Metamyelocyte 3 % (0-0); Monocytes 7 % (0-10); Myelocyte 1 % (0-0); Neutrophil 34 % (42-75); Nucleated RBC 14 % (0); Platelet Count 12 thou/uL (130-400); Platelet Morphology Comment Appears Decreased; RBC Distribution Width 20.1 % (11.5-14.5); Red Blood Cell (RBC) Count 2.71 mill/uL (4.20-5.40); White Blood Cell (WBC) Count 13.3 thou/uL (4.8-10.8)
--- NOTE | 2019-12-27 09:41 | PDOC.MOPN ---
Interval History: not oriented but denies pain. - Vital Signs Vital Signs: Vital Signs (12 hours) Temp Pulse Resp BP Pulse Ox 12/27/19 07:14 98.2 F 97 20 154/83 H 96 12/27/19 04:25 98.2 F 92 20 148/80 H 100 12/27/19 00:33 97.7 F 99 20 143/72 H 93 L Weight Admit Weight 119 lb 3.2 oz Weight 124 lb 8.979 oz Most Recent Monitor Data Heart Rate from ECG 94 - Physical Exam General: Alert, Cooperative Lungs: Clear to auscultation Cardiovascular: Regular rate Abdomen: Normal bowel sounds Extremities: No clubbing, No cyanosis, No edema, Normal pulses, No tenderness/ swelling Neurological: Normal tone Psych/Mental Status: Other (disoriented) - Labs Result Diagrams: 12/27/19 05:11 12/25/19 05:13 Lab results: Laboratory Results - last 24 hr 12/27/19 05:41: POC Glucose 81 12/27/19 05:11: WBC 13.3 H, RBC 2.71 L, Hgb 8.9 L, Hct 26.4 L, MCV 97.4, MCH 32.8 H, MCHC 33.7, RDW 20.1 H, Plt Count 12 L*, MPV 14.0 H, Neutrophils % ( Manual) 34 L, Band Neuts % (Manual) 7, Lymphocytes % (Manual) 46, Monocytes % ( Manual) 7, Eosinophils % (Manual) 1, Basophils % (Manual) 1, Metamyelocytes % ( Man) 3 H, Myelocytes % 1 H, Nucleated RBCs # (Man) 14 H, Plt Morphology Comment Appears Decreased L 12/26/19 22:37: POC Glucose 108 12/25/19 13:45: Flow Cytometry Interp Status: lab reviewed by me A/P - Problem (1) Thrombocytopenia Current Visit: Yes Code(s): D69.6 - THROMBOCYTOPENIA, UNSPECIFIED Status: Acute (2) Anemia Current Visit: Yes Code(s): D64.9 - ANEMIA, UNSPECIFIED Status: Acute (3) Primary breast adenocarcinoma Current Visit: Yes Code(s): C50.919 - MALIGNANT NEOPLASM OF UNSP SITE OF UNSPECIFIED FEMALE BREAST Status: Acute - Plan Plan: 1. Metastatic Right breast CA, ER + 2. Informed sister, Jacki Staton, about diagnosis. Patient could take Arimidex. Family will discuss but are leaning towards hospice and quality of life. 3. No transfusion required today.
[2019-12-27] MEDS: Aspirin 81 mg Enteric Coated Tablet PO SCH (09:42)
[2019-12-27] MEDS: Docusate 100 MG CAP PO SCH (09:44)
[2019-12-27] MEDS: Lisinopril 10 MG TAB PO SCH (09:46)
[2019-12-27] MEDS: Ascorbic Acid 500 mg Chewable Tablet PO SCH ×2 (09:47→20:33)
[2019-12-27] MEDS: Polyethylene Glycol 3350 17 GM Packet PO SCH (09:47)
[2019-12-27] MEDS: Mirtazapine 15 MG TAB PO SCH (09:47)
[2019-12-27] MEDS: Pantoprazole 40 MG VIAL IVP SCH (09:48)
[2019-12-27] MEDS: risperiDONE 1 MG TAB PO SCH (20:32)
[2019-12-28 05:52] LABS: Hemoglobin 8.8 g/dL (12.0-16.0); Mean Corpuscular HGB CONC 34.6 g/dL (32.0-36.0); Mean Corpuscular Hemoglobin 33.9 pg (27.0-31.0); Mean Corpuscular Volume 98.1 fL (78.0-98.0); Mean Platelet Volume 12.8 fL (7.4-10.4); Platelet Count 8 thou/uL (130-400); Red Blood Cell (RBC) Count 2.58 mill/uL (4.20-5.40); White Blood Cell (WBC) Count 14.1 thou/uL (4.8-10.8)
[2019-12-28 06:36] LABS: Band 7 % (5-11); Lymphocytes 52 % (21-51); MDiff Complete? YES; Metamyelocyte 1 % (0-0); Monocytes 7 % (0-10); Myelocyte 3 % (0-0); Neutrophil 30 % (42-75); Nucleated RBC 13 % (0); Platelet Morphology Comment Appears Decreased; Polychromasia SLIGHT = 2-3 cells (100X) (0-2/hpf)
[2019-12-28] MEDS: Aspirin 81 mg Enteric Coated Tablet PO SCH (08:23)
[2019-12-28] MEDS: Docusate 100 MG CAP PO SCH (08:24)
[2019-12-28] MEDS: Mirtazapine 15 MG TAB PO SCH (08:27)
[2019-12-28] MEDS: Ascorbic Acid 500 mg Chewable Tablet PO SCH (08:27)
[2019-12-28] MEDS: Lisinopril 10 MG TAB PO SCH (08:27)
[2019-12-28] MEDS: Pantoprazole 40 MG VIAL IVP SCH (08:28)
[2019-12-28] MEDS: Polyethylene Glycol 3350 17 GM Packet PO SCH (08:28)
--- NOTE | 2019-12-28 10:26 | PDOC.MOPN ---
Interval History: patient confused - Vital Signs Vital Signs: Vital Signs (12 hours) Temp Pulse Resp BP BP Pulse Ox 12/28/19 09:00 93 L 12/28/19 08:27 138/76 12/28/19 08:00 97.4 F L 117 H 18 138/76 93 L Weight Admit Weight 119 lb 3.2 oz Weight 124 lb 8.979 oz Most Recent Monitor Data Heart Rate from ECG 94 - Physical Exam General: Alert HEENT: Atraumatic Psych/Mental Status: Other - Labs Result Diagrams: 12/28/19 05:15 12/25/19 05:13 Lab results: Laboratory Results - last 24 hr 12/28/19 05:15: WBC 14.1 H, RBC 2.58 L, Hgb 8.8 L, Hct 25.4 L, MCV 98.1 H, MCH 33.9 H, MCHC 34.6, RDW 20.0 H, Plt Count 8 L*, MPV 12.8 H, Neutrophils % (Manual ) 30 L, Band Neuts % (Manual) 7, Lymphocytes % (Manual) 52 H, Monocytes % ( Manual) 7, Metamyelocytes % (Man) 1 H, Myelocytes % 3 H, Neutrophils # Not Reportable, Lymphocytes # Not Reportable, Nucleated RBCs # (Man) 13 H, Plt Morphology Comment Appears Decreased L, Polychromasia SLIGHT = 2-3 cells 12/25/19 13:45: Flow Cytometry Interp Status: lab reviewed by me A/P - Problem (1) Thrombocytopenia Current Visit: Yes Code(s): D69.6 - THROMBOCYTOPENIA, UNSPECIFIED Status: Acute (2) Anemia Current Visit: Yes Code(s): D64.9 - ANEMIA, UNSPECIFIED Status: Acute (3) Primary breast adenocarcinoma Current Visit: Yes Code(s): C50.919 - MALIGNANT NEOPLASM OF [facility] SITE OF UNSPECIFIED FEMALE BREAST Status: Acute - Plan Plan: Spoke with Jacki LOPEZ, who states that family wants to pursue no treatment Patient will return to CT with hospice. CM consult done.
[2019-12-28 20:02] VITALS: BP 167/81; TEMP 98.1
[2019-12-28] MEDS ORDERED: cloNIDine 0.1 MG TAB PO SCH (21:00)
--- NOTE | 2019-12-29 05:21 | PQF ---
GUSTAVO HENDRICKSON VENKAT R MD [id number] [facility]-281 [id number] CLINICAL DOCUMENTATION CLARIFICATION FORM: POST DISCHARGE Addendum to original discharge summary date: ____ Late entry note date: __ DATE: 12/29/19 ATTN: Delfino Samuel Please exercise your independent, professional judgment in responding to the clarification form. Clinical indicators are provided on the bottom of this form for your review Please check appropriate box(s) to clarify if the following diagnosis has been ruled in or ruled out: SEPSIS [ ] Ruled in diagnosis [ ] Continue to treat [ ] Resolved [ y ] Ruled out diagnosis [ ] Cannot rule out diagnosis [ ] Other diagnosis [ ] Unable to determine In addition, please specify: Present on Admission (POA): [y ] Yes [ ] No [ ] Unable to determine For continuity of documentation, please document condition throughout progress notes and discharge summary. Thank You. CLINICAL INDICATORS - SIGNS / SYMPTOMS / LABS ED Notes 12/20 "sepsis" HP 12/20 "the patient felt maybe she has sepsis as well" HP 12/20 "elevated WBC" Labs WBC: 12/19=21.4 12/20=14.5 12/21=16.0 12/22=17.4 12/23=16.3 12/24=18.6 =17.2 12/26=19.1 12/27=13.3 12/28=14.1 Labs Lactate: 12/19=2.7 12/20=3.2 Vital signs Pulse: 12/2396=857 12/2433=286 12/2520=763 12/2777=450 12/2812=606 Vital signs Respi: 12/24=24 02=22 12/26=24 RISK FACTORS ED Notes 12/20-64 years old female ED Notes 12/20-PVD ED Notes 12/20-s/p left BKA ED Notes 12/20-Dementia PN 12/25-Breast cancer TREATMENTS Collected 12/25-Bone marrow biopsy Collected 12/20-Laboratory monitoring DEC 30-Vancomycin 1gm IV DEC 30-Zosyn 4.5gm IV DEC 30-IVF (This form is maintained as a part of the permanent medical record) 2014 [employer]. All Rights Reserved [email or web address]
--- NOTE | 2019-12-30 22:52 | PQF ---
GUSTAVO HENDRICKSON VENKAT R MD [id number] [facility]-281 [id number] CLINICAL DOCUMENTATION CLARIFICATION FORM: POST DISCHARGE Addendum to original discharge summary date: ____ Late entry note date: __ DATE: 12/30/2019 ATTN: Delfino Samuel Please exercise your independent, professional judgment in responding to the clarification form. Clinical indicators are provided on the bottom of this form for your review _y_ Final Diagnosis on the Pathology report: Bone marrow,consistent with metastaic carcinoma ___ Progress Notes indicate: Bone marrow disorder Clarification of Pathology report: Please check appropriate box(s): [ y] Agree w the pathology finding of Bone marrow,consistent with metastatic carcinoma [ ] Other explanation of pathology findings (please specify) [ ] Other diagnosis [ ] Unable to determine For continuity of documentation, please document condition throughout progress notes and discharge summary. Thank You. CLINICAL INDICATORS - SIGNS/ SYMPTOMS / LABS Path Report 12/25 "Bone marrow,consistent with metastatic carcinoma" ED Notes 12/19 "consistent with low hemoglobin" PN 12/24 "suspected primary bone marrow disorder" Labs WBC: 12/19=21.4 12/20=14.5 12/21=16.0 12/22=17.4 12/23=16.3 12/24=18.6 =17.2 12/26=19.1 12/27=13.3 12/28=14.1 Labs RBC: 12/19=0.83 12/20=2.22 12/21=2.01 12/22=1.98 12/23=1.95 12/24=3.09 =3.01 12/26=2.86 12/27=2.71 12/28=2.58 Labs Hgb: 12/19=3.2 12/20=7.7 12/21=7.1 12/22=7.0 12/23=6.8 12/24=10.0 12/25= 9.8 12/26=9.5 12/27=8.9 12/28=8.8 Labs Hct: =9.6 12/20=22.1 12/21=20.1 12/22=19.9 12/23=20.0 12/24=28.8 12/25 =28.5 12/26=27.4 12/27=26.4 12/28=25.4 RISK FACTORS ED Notes 12/20-64 years old female ED Notes 12/20-PVD ED Notes 12/20-s/p left BKA ED Notes 12/20-Dementia PN 12/25-Breast cancer HP 12/20-Anemia HP 12/20-Thrombocytopenia TREATMENTS HP 12/20-Blood transfusion Collected 12/25-Bone marrow biopsy MAR 12/20-IVF Collected 12/20-Laboratory monitoring (This form is maintained as a part of the permanent medical record) 2014 [employer]. All Rights Reserved [email or web address] [phone] [email or web address]
--- NOTE | 2019-12-30 22:56 | PQF ---
GUSTAVO HENDRICKSON VENKAT R MD [id number] [facility]-281 [id number] CLINICAL DOCUMENTATION CLARIFICATION FORM: POST DISCHARGE Addendum to original discharge summary date: ____ Late entry note date: __ DATE: 12/30/2019 ATTN: Delfino Samuel Please exercise your independent, professional judgment in responding to the clarification form. Clinical indicators are provided on the bottom of this form for your review Please check appropriate box(s): Pancytopenia due to: [ ] Chemotherapy/antineoplastic drugs [ ] Other drug-induced (please specify if known): [ y ] No pancytopenia [ ] Other diagnosis [ ] Unable to determine In addition, please specify: Present on Admission (POA): [y ] Yes [ ] No [ ] Unable to determine For continuity of documentation, please document condition throughout progress notes and discharge summary. Thank You. CLINICAL INDICATORS - SIGNS / SYMPTOMS / LABS Bone Biopsy 12/25 "History:Pancytopenia" ED Notes 12/19 "consistent with low hemoglobin" PN 12/24 "suspected primary bone marrow disorder" Labs WBC: 12/19=21.4 12/20=14.5 12/21=16.0 12/22=17.4 12/23=16.3 12/24=18.6 =17.2 12/26=19.1 12/27=13.3 12/28=14.1 Labs RBC: 12/19=0.83 12/20=2.22 12/21=2.01 12/22=1.98 12/23=1.95 12/24=3.09 =3.01 12/26=2.86 12/27=2.71 12/28=2.58 Labs Hgb: 12/19=3.2 12/20=7.7 12/21=7.1 12/22=7.0 12/23=6.8 12/24=10.0 12/25= 9.8 12/26=9.5 12/27=8.9 12/28=8.8 Labs Hct: =9.6 12/20=22.1 12/21=20.1 12/22=19.9 12/23=20.0 12/24=28.8 12/25 =28.5 12/26=27.4 12/27=26.4 12/28=25.4 RISK FACTORS ED Notes 12/20-64 years old female ED Notes 12/20-PVD ED Notes 12/20-s/p left BKA ED Notes 12/20-Dementia PN 12/25-Breast cancer HP 12/20-Anemia HP 12/20-Thrombocytopenia TREATMENT: HP 12/20-Blood transfusion Collected 12/25-Bone marrow biopsy MAR 12/20-IVF Collected 12/20-Laboratory monitoring (This form is maintained as a part of the permanent medical record) 2014 [employer] All Rights Reserved [email or web address] [phone] SOBIA
--- NOTE | 2019-12-31 15:36 | DIS ---
DATE OF ADMISSION: 12/20/2019 DATE OF DISCHARGE: 12/28/2019 ADMITTING DIAGNOSES: 1. Severe anemia. 2. Severe thrombocytopenia. 3. Leukocytosis. 4. Bipolar disorder. 5. Peripheral vascular disease. 6. Dementia. 7. Cerebral palsy. 8. Status post below knee amputation, left. 9. Possible hemolysis. FINAL DIAGNOSES: 1. Metastatic breast cancer involving bone marrow. 2. Severe anemia, status post transfusion. 3. Severe thrombocytopenia, status post transfusion of platelets. 4. Leukocytosis. 5. Peripheral vascular disease. 6. Dementia. 7. Bipolar disorder. 8. Cerebral palsy. 9. Below knee amputation, left. BRIEF SUMMARY OF HOSPITAL COURSE: Ms. Pitt is a 64-year-old female admitted because of severe anemia. The patient has a hemoglobin of 8.2. on admission. She was transfused and it went up to 7 and this dropped again to below 7, but she was transfused again and it went up to 8.8. The patient was also found to have severe thrombocytopenia with a platelet of 14. With transfusion it went up to 73, but dropped again to 32, then 12 and 7 and 8. She was transfused with platelets. It went up to 33, but again it dropped in the next few days to 12 and 8. The patient did not have any bleeding from thrombocytopenia. The patient also elevated WBC on the day of admission at 21,000 came down to 14, so the Hematology consult was done and GI consult was also done in view of anemia. The patient was seen by Dr. Limon. He felt the patient possibly have some hematological problems. No evidence of gross GI bleed. He felt this could be some hemolysis also in view of her elevated bilirubin. The patient was seen by Hematology and they suggested a bone marrow biopsy and the report came back later in the next few days, and it was reported as metastatic carcinoma, estrogen receptor positive, so it was felt to be breast cancer metastasis to bone marrow. Her condition was discussed with the family, her sisters who felt no aggressive oncology treatment. She wants to think about her hospice later when she goes back to long-term. She wants to continue current management as well as physical therapy. The patient was transferred and she will be discharged back to long-term. At the time of discharge vital signs are stable, lungs clear, abdomen soft, not tender. DISCHARGE MEDICATIONS: Include: 1. Risperdal 75 mg every 2 weeks IM. 2. Tylenol p.r.n. 3. Milk of magnesia p.r.n. 4. Risperdal, also she gets tablet form in the night 4 mg. 5. Vitamin C 500 mg b.i.d. 6. Seroquel 50 mg b.i.d. 7. Colace 100 mg daily. 8. Aspirin 81 mg daily. 9. dulcolax 1 prn daily. 10. Lisinopril 10 mg daily. 11. MiraLAX 17 g daily. 12. Clonidine 0.1 b.i.d. The patient will be followed up in long-term. Once the family decides on the hospice care the patient will be put on hospice care. Job ID: [id number] [facility]
--- NOTE | 2019-12-31 21:37 | PQF ---
GUSTAVO HENDRICKSON VENKAT R MD [id number] O-281 [id number] CLINICAL DOCUMENTATION CLARIFICATION FORM: POST DISCHARGE Addendum to original discharge summary date: ____ Late entry note date: __ DATE: 12/31/2019 ATTN: Delfino Samuel Please exercise your independent, professional judgment in responding to the clarification form. Clinical indicators are provided on the bottom of this form for your review. Based on your clinical judgment, can you please specify etiology of patient's anemia? Please check appropriate box(s): [ y Anemia due to secondary bone marrow cancer [ ] Anemia due to primary breast cancer [ ] Anemia due to other known etiology please specify: [ ] Other diagnosis [ ] Unable to determine For continuity of documentation, please document condition throughout progress notes and discharge summary. Thank You. CLINICAL INDICATORS - SIGNS / SYMPTOMS / LABS ED Notes 12/19 "consistent with low hemoglobin" PN 12/24 "suspected primary bone marrow disorder" Query response "Bone marrow,consistent with metastatic carcinoma" Labs RBC: 12/19=0.83 12/20=2.22 12/21=2.01 12/22=1.98 12/23=1.95 12/24=3.09 =3.01 12/26=2.86 12/27=2.71 12/28=2.58 Labs Hgb: 12/19=3.2 12/20=7.7 12/21=7.1 12/22=7.0 12/23=6.8 12/24=10.0 12/25= 9.8 12/26=9.5 12/27=8.9 12/28=8.8 Labs Hct: =9.6 12/20=22.1 12/21=20.1 12/22=19.9 12/23=20.0 12/24=28.8 12/25 =28.5 12/26=27.4 12/27=26.4 12/28=25.4 DS "He felt this could be some hemolysis also in view of her elevated bilirubin" RISK FACTORS ED Notes 12/20-64 years old female ED Notes 12/20-PVD ED Notes 12/20-s/p left BKA ED Notes 12/20-Dementia PN 12/25-Breast cancer HP 12/20-Anemia HP 12/20-Thrombocytopenia Query response-Bone marrow,consistent with metastatic carcinoma TREATMENTS: HP 12/20-Blood transfusion Collected 12/25-Bone marrow biopsy MAR 12/20-IVF Collected 12/20-Laboratory monitoring DS -Hematology consult (This form is maintained as a part of the permanent medical record) 2014 [employer]. All Rights Reserved [email or web address] [phone] [email or web address]
--- NOTE | 2019-12-31 21:43 | PQF ---
GUSTAVO HENDRICKSON VENKAT R MD [id number] [facility]-281 [id number] CLINICAL DOCUMENTATION CLARIFICATION FORM: POST DISCHARGE Addendum to original discharge summary date: ____ Late entry note date: __ DATE: 12/31/2019 ATTN: Delfino Samuel Please exercise your independent, professional judgment in responding to the clarification form. Clinical indicators are provided on the bottom of this form for your review Please check appropriate box(s): [ ] Encephalopathy: Etiology: [ ] Hypertensive [ y] Metabolic [ ] Toxic [ ] Drug induced: [ ] Unspecified [ ] in the setting of underlying dementia [ ] Other (please specify) [ ] Transient Alteration of Awareness [ ] Other diagnosis [ ] Unable to determine In addition, please specify: Present on Admission (POA): [y ] Yes [ ] No [ ] Unable to determine For continuity of documentation, please document condition throughout progress notes and discharge summary. Thank You. CLINICAL INDICATORS - SIGNS / SYMPTOMS / LABS PN 12/27 "Disoriented" ED Notes 12/19 "consistent with low hemoglobin" PN 12/24 "suspected primary bone marrow disorder" Query response "Bone marrow,consistent with metastatic carcinoma" RISK FACTORS ED Notes 12/20-64 years old female ED Notes 12/20-PVD ED Notes 12/20-s/p left BKA ED Notes 12/20-Dementia PN 12/25-Breast cancer HP 12/20-Anemia HP 12/20-Thrombocytopenia Query response-Bone marrow,consistent with metastatic carcinoma TREATMENTS: HP 12/20-Blood transfusion Collected 12/25-Bone marrow biopsy MAR 12/20-IVF Collected 12/20-Laboratory monitoring DS -Hematology consult (This form is maintained as a part of the permanent medical record) 2014 [employer]. All Rights Reserved [email or web address] [phone] [email or web address]
== END 2019-12-28 20:20 | DRG 542 ==
LOC: ERS 23:13 → 2NO 12-20 00:35 → T4-A 12-21 14:39
PROVIDERS: ADMIT Internal Medicine; ATTEND Internal Medicine
PROC: 30233N1 Transfusion of Nonautologous Red Blood Cells into Peripheral Vein, Percutaneous Approach (ICD-10-PCS; 2019-12-20)
PROC: 3E02340 Introduction of Influenza Vaccine into Muscle, Percutaneous Approach (ICD-10-PCS; 2019-12-20)
PROC: 07DR3ZX Extraction of Iliac Bone Marrow, Percutaneous Approach, Diagnostic (ICD-10-PCS; principal; 2019-12-25)
DX: C79.52 Secondary malignant neoplasm of bone marrow (principal); G93.41 Metabolic encephalopathy; R17 Unspecified jaundice; G80.9 Cerebral palsy, unspecified; I73.9 Peripheral vascular disease, unspecified; F03.90 Unspecified dementia, unspecified severity, without behavioral disturbance, psychotic disturbance, mood disturbance, and anxiety; F25.0 Schizoaffective disorder, bipolar type; C50.919 Malignant neoplasm of unspecified site of unspecified female breast; D69.6 Thrombocytopenia, unspecified; Z89.512 Acquired absence of left leg below knee; Z66 Do not resuscitate; Z79.899 Other long term (current) drug therapy; Z79.82 Long term (current) use of aspirin; K56.41 Fecal impaction; Z23 Encounter for immunization; D63.0 Anemia in neoplastic disease
CPT/HCPCS: 20225; 36415; 36416; 36430; 51701; 71045; 74019; 74177; 76380; 76705; 77012; 80053; 81003; 81015; 82248; 82274; 82607; 82728; 82746; 83010; 83540; 83550; 83605; 83615; 85025; 85046; 85060; 85097; 85362; 85379; 85384; 85610; 85730; 86850; 86900; 86901; 87040; 87086; 88184; 88189; 88237; 88264; 88280; 88305; 88311; 88313; 88341; 88342; 88361; 93005; 94760; 96361; 96365; 96375; A4353; C9113; J1100; J2001; J2405; J2543; J2704; J3010; J3370; J3490; P9016; P9035; Q9967